=== PATIENT | female | born 1980 | race African-American/Black ===

== ENCOUNTER 2022-02-26 16:33 | Emergency (ER) | payer MEDICAID ==
[~2022-02-26] VITALS: Ht 167.6 cm; Wt 75.0 kg
[2022-02-26 22:15] VITALS: BP 120/70
== END 2022-02-26 22:20 | disposition home or self-care (01) ==
LOC: ER 16:33
DX: M25.552 Pain in left hip (principal); M54.50 Low back pain, unspecified; M54.2 Cervicalgia
CPT/HCPCS: 72100; 72170; 99284